=== PATIENT | female | born 1980 | race Native Hawaiian/Other Pacific Islander ===

== ENCOUNTER 2017-01-13 18:47 | Emergency (ER) | payer OTHER ==
[2017-01-13 19:44] VITALS: BMI 28.0
[2017-01-13 20:38] LABS: BASO % 0.4 % (0.0-2.0); EOS # 0.1 K/uL (0.0-0.7); EOS % 0.7 % (0.0-4.0); HEMATOCRIT 31.1 % (34.0-47.0); LYMPH # 2.9 K/uL (1.0-4.3); LYMPH % 24.5 % (20.0-40.0); MEAN CORPUSCULAR HEMOGLOBIN 27.2 pg (27.0-31.0); MEAN CORPUSCULAR HGB CONC 33.1 g/dL (33.0-37.0); MEAN PLATELET VOLUME 8.1 fl (7.2-11.7); MONO # 0.6 K/uL (0.0-0.8); MONO % 5.4 % (0.0-10.0); NEUT # 8.2 K/uL (1.8-7.0); RED CELL DISTRIBUTION WIDTH 13.1 % (11.5-14.5); WHITE BLOOD COUNT 11.8 K/uL (4.8-10.8)
[2017-01-13 20:42] LABS: RBC URINE 1 /hpf (0-3); URINE BACTERIA OCC (<OCC); URINE BILIRUBIN NEGATIVE (NEGATIVE); URINE BLOOD NEGATIVE (NEGATIVE); URINE COLOR YELLOW (YELLOW); URINE GLUCOSE (UA) NEG (Normal); URINE KETONE 20 mg/dL (NEGATIVE); URINE LEUKOCYTE ESTERASE NEG Leu/uL (Negative); URINE PROTEIN NEGATIVE (NEGATIVE); URINE UROBILINOGEN 0.2-1.0 mg/dL (0.2-1.0); WBC URINE 1 /hpf (0-5)
[2017-01-13 20:51] LABS: ALB/GLOB RATIO 0.9 (1.0-2.1); ALKALINE PHOSPHATASE 107 U/L (38-126); ALT/SGPT 27 U/L (9-52); AST/SGOT 27 U/L (14-36); BILIRUBIN,TOTAL 0.3 mg/dl (0.2-1.3); BLOOD UREA NITROGEN 8 mg/dl (7-17); CALCIUM 8.9 mg/dL (8.4-10.2); CARBON DIOXIDE 23 mmol/L (22-30); CHLORIDE 105 mmol/L (98-107); GFR AFRICAN-AMERICAN > 60; GLUCOSE,RANDOM 77 mg/dL (65-105); POTASSIUM 3.3 MMOL/L (3.6-5.0); SODIUM 139 mmol/l (132-148)
--- NOTE | 2017-01-27 05:43 | OBHP ---
Datetime: 01/13/2017 20:03 IP Adm Impression: Term, intrauterine IP Admit Plan: Observation/Evaluation; Discharge home Admit Comment, IP Provider: [id number] edc 02/03 by lmp _ 1st trim us presents to [facility] for eval of elev bps today. Pt states she had bp checked in pharm and was 170/90. She states for past 3wks she has h ad mild h/a, rated 2/10 which resolve spontaneously with rest. She denies visual disturbances, ruq/m idepigastric pain, n/v, and states she does not have a h/a a present. Us done today gave efw 5lb7oz. denies decreased fm, srom or vag bleeding. states she has been having mild ctxs for 3wks. Denies h /o elev bp in prior preg pmhx_ pshx denies nkda medic: pnv shx: [id number] etoh, drugs or tobacco obhx: @36wks, spont labor i: 37week Eval elev bp p: cmp, cbc, u/a, ldh monitor bps pt d/w dr soto pt advised of plan of eval addendum: labs wnl p: d/c home. f/u with dr soto on as sched'd preeclamptic precautions. kick counts. results and f/u visit d/w dr soto. Pelvic Type - PN: Adequate Extremities - PN: Normal Abdomen - PN: Normal Lungs - PN: Normal Neurologic - PN: Normal HEENT - PN: Normal General - PN: Normal FHR - Baseline A Provider: 150 Contraction Comments Provider: irreg mild Gestation - Est Wks by US: 37.0 Vital Signs Provider: Reviewed IP Chief Complaint: Other NICHD Variability Prov Fetus A: Moderate 6-25bpm NICHD Accel Fetus A IP Provider: [id number] FHR Category Provider Fetus A: Category I Dilatation, Provider: 0 Effacement, Provider: 0 Station, Provider: -4 Genitourinary Exam: Normal
== END 2017-01-13 21:30 | disposition home or self-care (01) ==
LOC: H.EROB2 18:47
DX: O13.3 Gestational [pregnancy-induced] hypertension without significant proteinuria, third trimester (principal); Z3A.37 37 weeks gestation of pregnancy

== ENCOUNTER 2017-01-27 05:41 | Inpatient (IN) | payer OTHER ==
[2017-01-27 05:41] VITALS: BMI 28.0
[2017-01-27] MEDS ORDERED: Lactated Ringer's 1,000 ML IV SCH (06:45)
[2017-01-27 06:56] LABS: HEMATOCRIT 36.1 % (34.0-47.0); MEAN CELL VOLUME 80.3 fl (81.0-99.0); MEAN CORPUSCULAR HEMOGLOBIN 26.6 pg (27.0-31.0); MEAN CORPUSCULAR HGB CONC 33.1 g/dL (33.0-37.0); RED CELL DISTRIBUTION WIDTH 13.4 % (11.5-14.5); WHITE BLOOD COUNT 17.1 K/uL (4.8-10.8)
[2017-01-27 06:58] VITALS: BP 131/90; PULSE 98; RESP 16; TEMP 97.9; O2SAT 100
[2017-01-27 07:15] LABS: ALKALINE PHOSPHATASE 139 U/L (38-126); ALT/SGPT 25 U/L (9-52); AST/SGOT 27 U/L (14-36); BILIRUBIN,TOTAL 0.3 mg/dl (0.2-1.3); BLOOD UREA NITROGEN 9 mg/dl (7-17); CALCIUM 8.7 mg/dL (8.4-10.2); CARBON DIOXIDE 20 mmol/L (22-30); CHLORIDE 109 mmol/L (98-107); GFR AFRICAN-AMERICAN > 60; GLUCOSE,RANDOM 80 mg/dL (65-105); POTASSIUM 3.5 MMOL/L (3.6-5.0); SODIUM 140 mmol/l (132-148)
[2017-01-27] MEDS ORDERED: Fentanyl/Bupivacaine HCl 250 ML EPI ONE (07:32)
[2017-01-27] MEDS ORDERED: Bupivacaine HCl 0.25% PF (10 ml) Inj ONE (07:33)
[2017-01-27] MEDS ORDERED: Oxytocin 30 units/LR 500ML 30 U/500 ML BAG IV ONE (08:38)
[2017-01-27] MEDS ORDERED: Oxytocin 30 units/LR 500ML 30 U/500 ML BAG IV SCH (10:35)
--- NOTE | 2017-01-27 10:58 | OBDS ---
DELIVERY PERSONNEL Delivery Doctor: Edie Easton MD [facility] Laboratory Technician: Cait Deleon RN Anesthesiologist: Teresa Li MD MATERNAL INFORMATION Delivery Anesthesia: Epidural Medications in Delivery: Pitocin 30 units @ 999 Estimated Blood Loss (ml): 300ml Placenta Cultured: Yes Maternal Complications: None; Other RN Comments: tachychardia Provider Comments: delivery of live baby girl 9/9 clear fluid cord with 3-vessels placenta int act first degree laceration and repair LABOR SUMMARY EDC: 02/03/2017 00:00 No. Babies in Womb: 1 Attempted: No Labor Anesthesia: Epidural LABOR INFORMATION Reason for Induction: Not Applicable Onset of Labor: 01/26/2017 03:30 Complete Dilatation: 01/27/2017 09:05 Oxytocin: N/A Group B Beta Strep: Negative Steroids Given: None Reason Steroids Not Administered: Not Applicable MEMBRANES Membranes Rupture Method: Spontaneous Rupture of Membranes: 01/27/2017 09:05 Length of Rupture (hrs): 1.43 Amniotic Fluid Color: Clear Amniotic Fluid Amount: Moderate Amniotic Fluid Odor: Normal STAGES OF LABOR Stage 1 hrs: 29 Stage 1 min: 35 Stage 2 hrs: 1 Stage 2 min: 26 Stage 3 hrs: 0 Stage 3 min: 4 Total Time in Labor hrs: 31 Total Time in Labor min: 5 VAGINAL DELIVERY Episiotomy: None Laceration Extension: First Degree Laceration Type: Perineal Laceration Repair: Yes Laceration Repair Note: repair of first degree laceration with 2-0 chromic Initial Vag Sponge Count: 10 Final Vag Sponge Count: 10 Initial Vag Sharps Count: 1 Final Vag Sharps Count: 1 Sponge Count Correct: Yes Sharps Count Correct: No BABY A INFORMATION Delivery Date/Time: 01/27/2017 10:31 Method of Delivery: Vaginal Born in Route : No : N/A Forceps: N/A Vacuum Extraction: Successful Shoulder Dystocia : No SHOULDER DYSTOCIA BABY A Infant Delivery Date/Time: 01/27/2017 10:31 PRESENTATION/POSITION BABY A Presentation: Cephalic Cephalic Presentation: Vertex Breech Presentation: N/A PLACENTA INFORMATION BABY A Placenta Delivery Time : 01/27/2017 10:35 Placenta Method of Delivery: Spontaneous Placenta Status: Delivered INFANT INFORMATION BABY A Gestational Age at Delivery: 39.0 Gestational Status: Term Outcome : Liveborn Condition : Stable Infant Sex: Female WEIGHT/LENGTH BABY A Birthweight (gms): 2525 Infant Weight (lb): 5 Infant Weight (oz): 9 CORD INFORMATION BABY A No. Cord Vessels: 3 Nuchal Cord : N/A Cord Blood Taken: N/A ASSESSMENT BABY A Complications: None Physical Findings at Delivery: Within Normal Limits Infant Respirations: Appears Normal Commercial Leasing Manager/ALS Called : No Care By: Dr. Granados Transferred To: Remains with Mother
[2017-01-27] MEDS ORDERED: Oxycodone/Acetaminophen 5/325 mg Tab PO PRN ×2 (11:03)
--- NOTE | 2017-01-27 11:03 | OBADHP ---
Datetime: 01/27/2017 06:27 Admit Comment, IP Provider: 36 yo, at 39 weeks GA with PINEDA: 02/03 presents to [facility] c/o uterin e Ctx started yesterday 3 am every 15-20 min, more frequent today 3: 30 am every 6 min. Patient also reports vaginal mucous spotting small amount. She denies LOF, fever, dysuria, headache, blurry visi on, leg sweeling. Reports + FM. last visit last thrusday, last Us 01/13 as per patient EFW: 5.7 lbs. Re ports visit 2 weeks ago due to high blood pressure with work out neg for preclampsia. BP:143/115 toda y , asymptomatic POBhx: 36 weeks, 6.2 lbs PGYNHx: no allergies: NKDA MEds: PNV PSurgHx: None PShx: No ETOh, rect drugs, cig : No records with the patient at this moment Assessment/Plan: 36 yo, at 39 weeks GA. Active labor -Admit L _ D -Continous monitoring -IV fluids -CBC, Type screen,CMP, LDH, rapid HIV, rapid RPR Yudith Cheema PGY1 Case discussed with Dr Pemberton Pelvic Type - PN: Adequate Extremities - PN: Normal Abdomen - PN: Normal Back - PN: Normal Breast - PN: Normal Lungs - PN: Normal Heart - PN: Normal Thyroid - PN: Normal Neurologic - PN: Normal HEENT - PN: Normal General - PN: Normal FHR - Baseline A Provider: 150 Membranes, Provider: Bulging Contraction Comments Provider: irregular q4 Comments, ACOG Physical Exam: Us bedside: vertex Pool Provider: Negative Vital Signs Provider: Reviewed IP Chief Complaint: Uterine contractions NICHD Variability Prov Fetus A: Moderate 6-25bpm NICHD Accel Fetus A IP Provider: [id number] FHR Category Provider Fetus A: Category I NICHD Decel Fetus A IP Provider: None Dilatation, Provider: 5-6 cm Effacement, Provider: 90 Station, Provider: -1 Genitourinary Exam: Normal DTRs - PN: Normal EGA AdmitDate IP: 39.0 IP Adm Impression: Term, intrauterine ; Active labor IP Admit Plan: Admit to unit Datetime: 01/13/2017 20:03 Gestation - Est Wks by US: 37.0
[2017-01-28 06:54] LABS: BASO % 0.2 % (0.0-2.0); EOS # 0.1 K/uL (0.0-0.7); EOS % 0.4 % (0.0-4.0); HEMATOCRIT 30.2 % (34.0-47.0); LYMPH # 2.9 K/uL (1.0-4.3); LYMPH % 15.8 % (20.0-40.0); MEAN CELL VOLUME 81.1 fl (81.0-99.0); MEAN CORPUSCULAR HEMOGLOBIN 26.8 pg (27.0-31.0); MEAN PLATELET VOLUME 7.8 fl (7.2-11.7); MONO # 1.1 K/uL (0.0-0.8); MONO % 5.8 % (0.0-10.0); NEUT # 14.2 K/uL (1.8-7.0); NEUT % 77.8 % (50.0-75.0); RED CELL DISTRIBUTION WIDTH 13.9 % (11.5-14.5); WHITE BLOOD COUNT 18.3 K/uL (4.8-10.8)
[2017-01-28] MEDS ORDERED: Benzocaine/Menthol SPRAY TOP PRN (08:34)
--- NOTE | 2017-01-28 08:53 | OBPPN ---
Datetime: 01/28/2017 08:47 PP Pain Prov: Within normal limits PP Nausea Prov: Denies PP Flatus Prov: Yes PP BM Prov: No PP Breasts Prov: Normal PP Heart Prov: Normal PP Lungs Prov: Normal PP Abdomen/Uterus Prov: Normal PP Lochia Prov: Normal PP Vulva/Perineum Prov: Normal PP CVA Tenderness Prov: Normal PP Extremities Prov: Normal PP Progress Prov: Normal PP Impression Prov: Normal progression PP Plan Prov: Continue present management PP Progress Note Prov: stable ppd1 continue present care IP PP Procedures: None Vital Signs Provider PP: Reviewed; Within Normal Limits
--- NOTE | 2017-01-29 08:23 | OBPPN ---
Datetime: 01/29/2017 08:20 PP Pain Prov: Within normal limits PP Nausea Prov: Denies PP Flatus Prov: Yes PP BM Prov: Yes PP Breasts Prov: Normal PP Heart Prov: Normal PP Lungs Prov: Normal PP Abdomen/Uterus Prov: Normal PP Lochia Prov: Normal PP Vulva/Perineum Prov: Normal PP CVA Tenderness Prov: Normal PP Extremities Prov: Normal PP Progress Prov: Normal PP Impression Prov: Normal progression PP Plan Prov: Continue present management PP Progress Note Prov: stable ppd2 no complaints today dc home today IP PP Procedures: None Vital Signs Provider PP: Reviewed; Within Normal Limits
--- NOTE | 2017-01-29 08:40 | OBDCSUM ---
Datetime: 01/29/2017 08:23 Discharged to, Provider: Home Follow up at, Provider: Disch Instr Diet: Regular Discharge Instructions, Provider: Routine instructions given Discharge Diagnosis, Provider: Term Delivered Discharge Time: 01/29/2017 08:23 Follow up in weeks, Provider: 5-6 weeks Disch Referrals: None Disch Activity Restrictions: No exercising; No lifting; No driving; Minimize walking; Minimize stair -climbing; No sexual activity; Nothing in vagina - [place], tampons, douche Discharge Comment, Provider: dc home today rto 5-6 weeks call office if any problems Contraception after Delivery: Undecided
== END 2017-01-29 13:20 | disposition home or self-care (01) | DRG 775 ==
LOC: H.EROB2 05:41 → H.L&D 06:32 → H.OB/GYN 13:30
PROVIDERS: ADMIT Specialist; ATTEND Specialist
PROC: 0HQ9XZZ Repair Perineum Skin, External Approach (ICD-10-PCS; principal; 2017-01-27)
PROC: 10E0XZZ Delivery of Products of Conception, External Approach (ICD-10-PCS; 2017-01-27)
PROC: 4A1HXCZ Monitoring of Products of Conception, Cardiac Rate, External Approach (ICD-10-PCS; 2017-01-27)
DX: O76 Abnormality in fetal heart rate and rhythm complicating labor and delivery (principal); O70.0 First degree perineal laceration during delivery; Z37.0 Single live birth; Z3A.39 39 weeks gestation of pregnancy